=== PATIENT | female | born 1935 | race Caucasian/White ===

== ENCOUNTER 2016-11-19 23:17 | Inpatient (IN) | payer MEDICARE, OTHER ==
--- NOTE | ~2016-11-19 | DS ---
Unit #: [id number] #: [id number] Patient: DURGA COKER [id number] [address] [place], [place] [address] [id number] I MR#: [id number] NAME: DURGA COKER ROOM: 321 Age: 81 Sex: F Admission Date: 11/20/2016 : 1935 Discharge Date: Attending Physician: Tamara Jackson M.D. DISCHARGE SUMMARY REASON FOR ADMISSION Confusion and fall. HISTORY OF PRESENT ILLNESS/HOSPITAL COURSE The patient is a 81-year-old female with underlying history of hypertension, GERD, chronic kidney disease, who was admitted secondary to confusion. Please see H and P for complete details. Initial urinalysis was positive, and therefore initial diagnosis of possible UTI as an etiology for confusion was made. She underwent routine laboratory studies as well as radiological imaging. BMP on the day of admission showed a creatinine of 1.1 and GFR of 50. Initial cardiac enzymes sets were negative. However, repeat troponin was elevated, peak level was 0.29. This subsequently prompted cardiac consultation. Dr. Austin saw and evaluated the patient. She underwent a nuclear stress test imaging yesterday, which did not reveal any acute ischemia. She was cleared from a cardiac standpoint. Routine blood cultures through hospital admission did not yield any bacterial growth. CT chest without contrast was also performed. Consideration of possible pneumonia as an etiology for mental status change. There was opacity of the left lung base, most likely atelectasis, infiltrate was not identified. CT head without contrast was negative. MRI brain was performed without contrast, which did reveal chronic ischemic changes, but no acute process. Final urine culture result did not reveal any acute bacterial growth. [facility] had seen and evaluated the patient. She was felt to be stable from their standpoint to be discharged home. It seems likely that one of the causes of her acute confusion may be secondary to polypharmacy, and therefore baclofen dosage was decreased from 10 mg b.i.d. to 5 mg p.o. b.i.d. p.r.n., and her Ativan was decreased from 0.5 mg p.o. q.8 to only bedtime as needed. Her cardiac medications have been adjusted. Please see below for complete details. Also, it was noted her trazodone was discontinued altogether. FINAL DISCHARGE DIAGNOSES Unit #: [id number] #: [id number] Patient: DURGA COKER 1. Temporary encephalopathy likely secondary to polypharmacy. 2. Elevated troponin/nvd-AV-rkcdqtung myocardial infarction with cardiac stress test/nuclear imaging negative. 3. Anxiety/depression. 4. Acute confusion on top of likely baseline dementia. 5. Anxiety/depression. 6. History of hypertension. 7. Hyperlipidemia. 8. Atelectasis, seen on CT chest. FINAL DISCHARGE MEDICATIONS Zoloft 200 mg p.o. q.h.s., Ativan 0.5 mg p.o. q.h.s. p.r.n., Norvasc 5 mg p.o. daily, Lopressor 25 mg p.o. b.i.d., Lipitor 40 mg p.o. q.h.s., aspirin 81 mg p.o. daily, Plavix 75 mg p.o. daily, baclofen 5 mg p.o. b.i.d. p.r.n., Imdur 30 mg p.o. daily. DISCHARGE CONDITION Stable. DISCHARGE DISPOSITION Home. The patient resides at home with her 2 daughters. The [facility] is to follow at the time of discharge. Dictated by... Zuleyma Rojas/mayra TD: 11/23/2016 06:30 JOB #: [id number] DISCHARGE SUMMARY Page 1 of 1 X Tamara Jackson MD X DISCHARGE SUMMARY
--- NOTE | ~2016-11-19 | CT52 ---
[facility] A Service of [facility] RADIOLOGY TEXT RESULTS PATIENT: DURGA COKER LOCATION: C3A PC 321-01 : 37 UNIT #: [id number] AGE: [address]: Tamara Jackson MD SEX: F ORDER DR: [id number] [place] [id number] [facility]. [place], [place] [address] [id number] I MR#: [id number] Acc #: [id number] NAME: DURGA COKER : 1935 SEX: F STUDY DATE/TIME: 11/19/2016 23:36 UNIT: CEDOF ROOM: 17258 STUDY DESCRIPTION: CT Cervical Spine Wo Cont Attending Physician: Tamara Jackson M.D. Ordering Physician: Robe Solitario M.D. Primary Care Physician: No Primary Care Physician MEDICAL IMAGING REPORT This report is preliminary unless electronic signature is present EXAM CT cervical spine, 11/19/2016. HISTORY 81-year-old female in the ED complaining of neck pain and mental status changes after a fall earlier this morning. TECHNIQUE Thin-section axial CT images were obtained from the skull base through the mid portion of T2. Sagittal and coronal images were reconstructed. This CT exam was performed with one or more of the following radiation dose reduction techniques: automatic exposure control, adjustment of mA and/or kV according to patient size, and iterative reconstruction. FINDINGS No fracture or other acute osseous abnormality is demonstrated. Advanced degenerative disc space changes at C5-6 and more mild degenerative disc space narrowing throughout the remainder of the cervical spine. Severe bilateral degenerative facet arthropathy throughout the cervical spine with slight anterolisthesis at C7-T1, which should be degenerative. There are also advanced degenerative changes at the atlantoaxial articulation. IMPRESSION 1. No fracture or other acute osseous abnormality. 2. Multilevel degenerative disc disease throughout the cervical spine, greatest at C5-6. 3. Severe bilateral degenerative facet arthropathy throughout the cervical spine with slight anterolisthesis at C7-T1. [address]. [facility] A Service of [facility] RADIOLOGY TEXT RESULTS PATIENT: DURGA COKER LOCATION: C3A PC 321-01 : 37 UNIT #: [id number] AGE: [address]: Tamara Jackson MD SEX: F ORDER DR: Dictated by... Jose M Donahue M.D. THIS IS AN ELECTRONICALLY VERIFIED REPORT Jose M Donahue M.D. at 11/20/2016 10:05 PM STEPHEN/leelee TD: 11/20/2016 12:55 JOB #: [id number] MEDICAL IMAGING REPORT Page 1 of 1 COPY
--- NOTE | ~2016-11-19 | EKG ---
PATIENT: DURGA COKER UNIT #: [id number] Ventricular Rate: 86 BPM Atrial Rate: 86 BPM P-R Interval: 204 ms QRS Duration: 102 ms Q-T Interval: 362 ms QTC Calculation(Bezet): 433 ms P [place]: 30 degrees Calculated R [place]: -38 degrees Calculated T [place]: -16 degrees Diagnosis Line: Normal sinus rhythm Diagnosis Line: Left axis deviation Diagnosis Line: Incomplete right bundle branch block Diagnosis Line: Left ventricular hypertrophy Baseline wander Diagnosis Line: Septal infarct , age undetermined Diagnosis Line: Abnormal ECG Diagnosis Line: Diagnosis Line: Confirmed by NEEL LANDEROS MD ([id number]) on 11/21/2016 Diagnosis Line: 9:17:44 AM INTERPRETING MD: TIGRE GOLDBERG
--- NOTE | ~2016-11-19 | EKG ---
PATIENT: DURGA COKER UNIT #: [id number] Ventricular Rate: 70 BPM Atrial Rate: 70 BPM P-R Interval: 152 ms QRS Duration: 108 ms Q-T Interval: 408 ms QTC Calculation(Bezet): 440 ms P [place]: 65 degrees Calculated R [place]: -34 degrees Calculated T [place]: -31 degrees Diagnosis Line: Normal sinus rhythm Diagnosis Line: Left axis deviation Diagnosis Line: Abnormal ECG Diagnosis Line: When compared with ECG of 19-NOV-2016 22:57, Diagnosis Line: (unconfirmed) Diagnosis Line: Incomplete right bundle branch block is no longer Diagnosis Line: Present Diagnosis Line: Diagnosis Line: Confirmed by ROCHELLE TILLMAN MD ([id number]) on 11/22/2016 Diagnosis Line: 7:43:25 AM INTERPRETING MD: PRIMO GOLDBERG
--- NOTE | ~2016-11-19 | CT57 ---
[facility] A Service of [facility] RADIOLOGY TEXT RESULTS PATIENT: DURGA COKER LOCATION: [facility] 321- : 37 UNIT #: [id number] AGE: [address]: Tamara Jackson MD SEX: F ORDER DR: [id number] [facility] [address] [facility]. [place], [place] [address] [id number] I MR#: [id number] Acc #: [id number] NAME: DURGA COKER : 1935 SEX: F STUDY DATE/TIME: 11/20/2016 14:40 UNIT: [address] ROOM: [facility] STUDY DESCRIPTION: CT Chest Wo Cont Attending Physician: Tamara Jackson M.D. Ordering Physician: Tamara Jackson M.D. Primary Care Physician: Primary Care Physician No MEDICAL IMAGING REPORT This report is preliminary unless electronic signature is present EXAM CT chest without contrast INDICATIONS Abnormal chest x-ray. Shortness of air for the past [address] of the chest. This CT exam was performed with one or more of the following radiation dose reduction techniques: automatic exposure control, adjustment of mA and/or kV according to patient size, and iterative reconstruction. COMPARISON 11/19/2016 FINDINGS There is some predominately linear opacity in the left lung base. In the left costophrenic sulcus, there is more rounded opacity measuring up to 3.2 cm. Otherwise there is no dense consolidation. No pleural fluid or pneumothorax. Cardiomegaly. No acute findings in the included upper abdomen. No aggressive appearing bone lesion. IMPRESSION 1. Opacity in the left lung base has the appearance most in keeping with atelectasis. 2. Otherwise lungs are predominately clear. 3. Cardiomegaly. Dictated by... Nuno Charles M.D. THIS IS AN ELECTRONICALLY VERIFIED REPORT Nuno Charles M.D. at 11/22/2016 7:15 AM [facility] A Service of [facility] RADIOLOGY TEXT RESULTS PATIENT: DURGA COKER LOCATION: C3A 321-01 : 37 UNIT #: [id number] AGE: [address]: Tamara Jackson MD SEX: F ORDER DR: DE/terese TD: 11/20/2016 20:11 JOB #: [id number] MEDICAL IMAGING REPORT Page 1 of 1 COPY
--- NOTE | ~2016-11-19 | EKG ---
PATIENT: DUGRA COKER UNIT #: [id number] Ventricular Rate: 69 BPM Atrial Rate: 69 BPM P-R Interval: 158 ms QRS Duration: 96 ms Q-T Interval: 434 ms QTC Calculation(Bezet): 465 ms P [place]: -21 degrees Calculated R [place]: -10 degrees Calculated T [place]: -30 degrees Diagnosis Line: Normal sinus rhythm Diagnosis Line: Nonspecific T wave abnormality Diagnosis Line: Borderline ECG Diagnosis Line: When compared with ECG of 21-NOV-2016 07:14, Diagnosis Line: No significant change was found Diagnosis Line: Confirmed by ROCHELLE TILLMAN MD ([id number]) on 11/24/2016 Diagnosis Line: 7:21:30 AM INTERPRETING MD: PRIMO GOLDBERG
--- NOTE | ~2016-11-19 | MR18 ---
[facility] A Service of [facility] RADIOLOGY TEXT RESULTS PATIENT: DURGA COKER LOCATION: [facility] 321- : 37 UNIT #: [id number] AGE: [address]: Tamara Jackson MD SEX: F ORDER DR: [id number] [facility] [address] [place], [place] [address] [id number] I MR#: [id number] Acc #: [id number] NAME: DURGA COKER : 1935 SEX: F STUDY DATE/TIME: 11/21/2016 11:33 UNIT: [address] ROOM: [facility] STUDY DESCRIPTION: MR Brain Wo Contrast Attending Physician: Tamara Jackson M.D. Ordering Physician: Zenia Nolen M.D. Primary Care Physician: No Primary Care Physician MRI CENTER REPORT This report is preliminary unless electronic signature is present. EXAM Brain MRI HISTORY Patient fell on 11/19/2016. Confusion and disorientation, and difficulty concentrating since. TECHNIQUE Multiplanar imaging of the brain was performed with short and long TR. FINDINGS On diffusion weighted images there is no evidence of abnormal restricted diffusion to suggest a recent infarct. The routine brain images show atrophy with mild to moderate chronic ischemic changes around the ventricles. There is no evidence of mass lesion, hemorrhage or edema. No midline shift is seen. Extraaxial structures are unremarkable. IMPRESSION Atrophy with mild to moderate chronic ischemic changes around the ventricles. No acute findings. Dictated by... Delmer Emmanuel M.D. THIS IS AN ELECTRONICALLY VERIFIED REPORT Delmer Emmanuel M.D. at 11/22/2016 7:41 AM DINAH/laurie TD: 11/21/2016 16:02 JOB #: [id number] MRI CENTER REPORT Page 1 of 1 COPY
--- NOTE | ~2016-11-19 | CO ---
Unit #: [id number] #: [id number] Patient: DURGA COKER [id number] [address] [place], [place] [address] [id number] I MR#: [id number] NAME: DURGA COKER ROOM: 321 Age: 81 Sex: F Admission Date: 11/20/2016 : 1935 Attending Physician: Tamara Jackson M.D. Primary Care Physician: Primary Care Physician No CONSULTATION REPORT REASON FOR CONSULTATION Elevated troponin. HISTORY OF PRESENT ILLNESS This is a 81-year-old white female, who was brought into the emergency room because of confusion and post fall. The patient is a poor historian, but states she slipped and fell off the bed on her blanket. She came to the emergency room at [facility] for evaluation of left shoulder pain. She was sent home on Lortab. Apparently, she had another episode where she fell and was brought into the emergency room again for evaluation. She was hypertensive on admission, where blood pressure was 179/113 mmHg. Her troponin was initially negative, however, this morning it was elevated at 0.44. EKG showed no acute ischemic changes. The patient gives a history of hypertension and family history of coronary artery disease as risk factors for ischemic heart disease. She has had apparently PCI a number years ago, however, there are no details available. There is no family at bedside to confirm. She denies chest pain, but complains of left scapular pain. She has shortness of breath on exertion and dizziness upon standing. She has no history of syncope or near syncope. Has occasional palpitations. PAST MEDICAL HISTORY 1. Questionable PCI in the past, no details available. 2. Hypertension. 3. GERD. 4. Anxiety/depression. 5. Lifelong nonsmoker. 6. Chronic kidney disease. PAST SURGICAL HISTORY 1. Cholecystectomy. 2. Bilateral cataract extractions. 3. [place] tooth extraction. SOCIAL HISTORY The patient lives with 2 daughters who care for her. She ambulates with a cane, but occasionally uses a wheelchair when out. She has never smoked. No illicit drug or alcohol use. FAMILY HISTORY Father from myocardial infarction. Has a sister, who had congestive heart failure. Unit #: [id number] #: [id number] Patient: COWGELL,DURGA ALLERGIES Penicillin. HOME MEDICATIONS Trazodone 100 mg q.h.s., lorazepam 0.5 mg t.i.d., baclofen 10 mg b.i.d. p.r.n., lovastatin 40 mg q.h.s., Zoloft 200 mg q.h.s., Tessalon Perles 100 mg t.i.d., and azithromycin 250 mg daily. REVIEW OF SYSTEMS CONSTITUTIONAL: Negative for weakness and fatigue. Reports no weight gain or weight loss. HEENT: No headache, hearing or vision changes, difficulty with swallowing. Positive for dizziness upon standing. CARDIOVASCULAR: Has no symptoms of angina. Has occasional palpitations. Denies paroxysmal nocturnal dyspnea or orthopnea. No syncope or near syncope. RESPIRATORY: Reports exertional dyspnea and occasional nonproductive cough. GASTROINTESTINAL: No abdominal pain, nausea, or vomiting. No constipation or melena. EXTREMITIES: Negative for lower extremity edema. Reports left scapular pain. PHYSICAL EXAMINATION VITAL SIGNS: Blood pressure 158/66, heart rate 72, temperature 98.3. BMI 26. GENERAL: This is a 81-year-old elderly white female, who is in no acute distress. NEUROLOGIC: She is awake, alert, and oriented without focal weaknesses. NECK: Trachea is midline. No thyromegaly or lymphadenopathy. No jugular venous distention. HEART: S1, S2. Heart sounds are normal. No murmurs. No rubs or clicks. Regular rate and rhythm. LUNGS: Clear to auscultation without rales, rhonchi, or wheezes. ABDOMEN: Soft and nontender with bowel sounds are present. EXTREMITIES: Without leg edema. SKIN: Warm and dry. DIAGNOSTIC STUDIES LABORATORY RESULTS: Glucose 104, BUN 20, creatinine 1.1, sodium 134, potassium 3.6. CK total 336, MB 3.6, MB index 1.1, troponin less than 0.05 to 0.44. IMAGING STUDIES: CT of the head, negative. Chest x-ray shows minimal left basilar infiltrate. CARDIOVASCULAR STUDIES: EKG; normal sinus rhythm with a rate of 86 beats per minute with left axis deviation, poor R-wave progression, and questionable old septal infarct. Incomplete right bundle-branch block. IMPRESSION 1. Altered mental status, status post fall. 2. Questionable left lower lobe pneumonia. 3. Elevated troponin questionable non-ST elevation myocardial infarction. 4. History of coronary artery disease with angina pectoris. 5. Hypertension. 6. Early dementia. Unit #: [id number] #: [id number] Patient: DURGA COKER PLAN 1. Cardiology was consulted for elevated troponin. CT of the head is negative. We will start anticoagulation with aspirin and Lovenox. 2. Lipid profile will be obtained. 3. Start on nitrates and beta-berna. 4. Repeat troponin and EKG. 5. 2D echocardiogram to evaluate left ventricular systolic function. 6. Her troponin continues to trend up where she may require cardiac catheterization to evaluate her coronary anatomy. This needs to be discussed with the patient's family. Dictated by... Osbaldo Chamorro A.P.R.N. for Zuleyma Hassan TD: 11/20/2016 23:46 JOB #: [id number] CONSULTATION REPORT Page 1 of 1 X Osbaldo Chamorro APRN X CONSULTATION REPORT
--- NOTE | ~2016-11-19 | ST ---
Unit #: [id number] #: [id number] Patient: DURGA COKER [id number] [facility]. [address] [place], [place] [address] [id number] I MR#: [id number] NAME: DURGA COKER : 1935 SEX: F STUDY DATE/TIME: 11/21/2016 UNIT: C3A PCU ROOM: [facility] STUDY DESCRIPTION: Attending Physician: Tamara Jackson M.D. Primary Care Physician: No Primary Care Physician CARDIOLOGY REPORT REASON FOR TEST History of CAD and chest pain. FINDINGS Baseline EKG: Sinus rhythm, 67 beats per minute. LVH, incomplete right bundle branch block. Q waves in septal leads cannot rule out previous septal infarct. Nonspecific ST-T wave abnormality is noted. PROCEDURE Next, 0.4 mg of Lexiscan was injected per protocol followed by Cardiolite. During the infusion, the patient denied any complaints of shortness of breath or chest pain; however, she did complain of some mild nausea. This resolved in the recovery period. There was no worsening of baseline ST-T wave changes that were present at rest. There was a rare PVC during the infusion. The test was stopped secondary to protocol completion. IMPRESSION 1. Nondiagnostic EKG portion of Lexiscan Cardiolite. 2. No worsening of ST segments during the infusion suggestive of ischemia. 3. Denied shortness of breath or chest pain. The patient did complain of some mild nausea during the infusion which resolved in the recovery period. 4. There was some isolate rare PVC during the infusion. 5. Please correlate with nuclear imaging. Dictated by... Eladia Ibarra A.P.R.N. for Yoly Austin M.D. LMW/kiera TD: 11/21/2016 11:52 JOB #: [id number] Unit #: [id number] #: [id number] Patient: DURGA COKER CARDIOLOGY REPORT Page 1 of 1 X Eladia Ibarra APRN CARDIOLOGY REPORT
--- NOTE | ~2016-11-19 | TH ---
Unit #: [id number] #: [id number] Patient: DURGA COKER [id number] [address] [address] [id number] I MR#: [id number] NAME: DURGA COKER : 1935 SEX: F STUDY DATE/TIME: 11/21/2016 UNIT: C3A PCU ROOM: [facility] STUDY DESCRIPTION: Lexiscan stress test - Nuclear Attending Physician: Tamara Jackson M.D. Primary Care Physician: No Primary Care Physician CARDIOLOGY REPORT PROCEDURE PERFORMED Lexiscan Cardiolite stress test - Nuclear portion. PROCEDURE Using technetium 99m-labeled Cardiolite, rest and stress SPECT images were obtained. Multiple SPECT images were obtained in various views, including horizontal and vertical long axis and short axis views of the left ventricle. Images were obtained by gated SPECT method. The patient was administered 10.89 mCi of Cardiolite at rest. The patient was administered 30.6 mCi of Cardiolite after Lexiscan infusion was completed. On the stress images, there is a small area of mildly decreased tracer uptake activity inferoapically. The rest images show a bigger area of decreased tracer uptake activity inferoapically. Comparing the rest and stress images, there is a small area of predominantly fixed defect seen inferoapically, worse on the rest images, consistent with soft tissue artifact. The left ventricular ejection fraction is calculated to be 75%. There is no focal wall motion abnormality seen. CONCLUSION 1. No obvious stress-induced ischemia noted. 2. There is a small area of predominantly fixed defect seen inferoapically, most likely due to soft tissue artifact. 3. The left ventricular ejection fraction is calculated to be 75%. 4. There is no focal wall motion abnormality seen. 5. The left ventricular size is small. 6. Normal Lexiscan Cardiolite stress test. Technically limited study. Clinical correlation is requested. Dictated by... Zuleyma Kruger TD: 11/21/2016 12:53 JOB #: [id number] Unit #: [id number] #: [id number] Patient: DURGA COKER CARDIOLOGY REPORT Page 1 of 1 X Yoly Austin MD <ELECTRONICALLY SIGNED> 03/22/17 [facility] CARDIOLOGY REPORT
--- NOTE | ~2016-11-19 | CT71 ---
[facility] A Service of [facility] RADIOLOGY TEXT RESULTS PATIENT: DURGA COKER LOCATION: [facility] 321-01 : 37 UNIT #: [id number] AGE: [address]: Tamara Jackson MD SEX: F ORDER DR: [id number] [facility] [address] [facility]. [place], [place] [address] [id number] I MR#: [id number] Acc #: [id number] NAME: DURGA COKER : 1935 SEX: F STUDY DATE/TIME: 11/19/2016 23:26 UNIT: CEDOF ROOM: 37178 STUDY DESCRIPTION: CT Head Wo Contrast Attending Physician: Tamara Jackson M.D. Ordering Physician: Robe Solitario M.D. Primary Care Physician: Primary Care Physician No MEDICAL IMAGING REPORT This report is preliminary unless electronic signature is present EXAM CT head, noncontrast, 11/19/2016 HISTORY 81-year-old female in the ED after injury earlier today. She fell, now complaining of confusion, disorientation, weakness and difficulty concentrating. Neck pain. TECHNIQUE CT examination of the head without IV contrast. FINDINGS no acute intracranial abnormality. No evidence of hemorrhage, mass, mass effect, cerebral edema or hydrocephalus. No visible skull fracture. IMPRESSION Negative head CT examination.. Dictated by... Jose M Donahue M.D. THIS IS AN ELECTRONICALLY VERIFIED REPORT Jose M Donahue M.D. at 11/20/2016 10:05 PM STEPHEN/lilia TD: 11/20/2016 12:55 JOB #: [id number] MEDICAL IMAGING REPORT Page 1 of 1 COPY
--- NOTE | ~2016-11-19 | DS ---
Unit #: [id number] #: [id number] Patient: DURGA COKER [id number] [address] [address] [id number] I MR#: [id number] NAME: DURGA COKER ROOM: 321 Age: 81 Sex: F Admission Date: 11/20/2016 : 1935 Discharge Date: 11/23/2016 Attending Physician: Tamara Jackson M.D. DISCHARGE SUMMARY ADDENDUM Please note above discharge summary. When we were planning for discharge for the patient to go home in review of her home situation, daughter stated that the patient had difficulty with ambulation. Daughters were unable to care for her. Therefore, PT and OT were asked to evaluate and re-evaluate the patient. She is quite ataxic and has difficulty with movement and therefore, both services as well as in consideration of family situation at home, now elected for the patient. We placed an appropriate rehab facility once rehab bed is available. The patient will be transitioned to rehab for ongoing care. Dictated by... Zuleyma Rojas/mayra TD: 11/23/2016 21:18 JOB #: [id number] DISCHARGE SUMMARY Page 1 of 1 X Tamara Jackson MD X DISCHARGE SUMMARY
--- NOTE | ~2016-11-19 | CR72 ---
[facility] A Service of [facility] & [facility] RADIOLOGY TEXT RESULTS PATIENT: DURGA COKER LOCATION: A 321-01 : 37 UNIT #: [id number] AGE: [address]: Tamara Jackson MD SEX: F ORDER DR: [id number] [facility] [address]. [place], [place] [address] [id number] MR#: [id number] Acc #: [id number] NAME: DURGA COKER : 1935 SEX: F STUDY DATE/TIME: 11/19/2016 22:53 UNIT: CEDOF ROOM: 17107 STUDY DESCRIPTION: CR Chest Single View Portable Attending Physician: Tamara Jackson M.D. Ordering Physician: Ed Doctor [id number] [facility] Primary Care Physician: Primary Care Physician No MEDICAL IMAGING REPORT This report is preliminary unless electronic signature is present EXAM Chest x-ray, 11/19/2016 (2253 hours) HISTORY 81-year-old female in the ED complaining of left side pain, weakness and mental status changes. Fell earlier today. She was previously evaluated in the ED earlier this morning complaining of left side chest pain, back and shoulder pain. TECHNIQUE AP portable upright chest x-ray. FINDINGS Fluid or pleural thickening in the left costophrenic angle with mild left basilar atelectasis. Elevation right hemidiaphragm. Lungs otherwise clear. No pneumothorax or pulmonary airspace consolidation. Cardiomediastinal silhouette is normal. There has been no change since the earlier exam today. Benign calcified granulomas left midlung and left hilum. IMPRESSION 1. No change since earlier today. 2. Fluid or pleural thickening in the left costophrenic angle with mild left basilar atelectasis. Dictated by... Jose M Donahue M.D. THIS IS AN ELECTRONICALLY VERIFIED REPORT Jose M Donahue M.D. at 11/20/2016 10:05 PM Roxana TD: 11/20/2016 12:54 [facility] A Service of [facility] & [facility] RADIOLOGY TEXT RESULTS PATIENT: DURGA COKER LOCATION: [facility] 321-01 : 37 UNIT #: [id number] AGE: [address]: Tamara Jackson MD SEX: F ORDER DR: JOB #: [id number] MEDICAL IMAGING REPORT Page 1 of 1 COPY
--- NOTE | ~2016-11-19 | HP ---
Unit #: [id number] #: [id number] Patient: DURGA COKER [id number] [address] [place], [place] [address] [id number] I MR#: [id number] NAME: DURGA COKER ROOM: 61368 Age: 81 Sex: F Admission Date: 11/20/2016 : 1935 Attending Physician: Zenia Nolen M.D. Primary Care Physician: No Primary Care Physician HISTORY AND PHYSICAL CHIEF COMPLAINT Confusion, fall. HISTORY This pleasant 81-year-old female with hypertension, GERD, chronic kidney disease is admitted for confusion. Daughter provides most of the history as patient is still a bit confused and is quite hard of hearing. Apparently the patient was in her usual state of health until yesterday morning. She was found on the floor by her bedside complaining of left shoulder pain. EMS took the patient to [facility] emergency department where she did have a pyuria on a noncatheterized urine specimen. She was also noted to have a little atelectasis versus infiltrate in the left lower base. She was given Zithromax and one Lortab. She went home yesterday. She is somnolent after taking the Lortab and slept for many hours. Her daughter checked on her several times. She then found her mother sitting on the floor, staring, confused. She was brought to this emergency department late last evening with a blood pressure of 182/90, heart rate 90. She is confused, although improved from before. She, however, is not back to her baseline. Repeat urinalysis in this ER was negative with a straight cath. Chest x-ray really just shows atelectasis at the lower lung base. Patient apparently did have a low grade temperature of 99.2. Workup thus far is fairly unrevealing in terms of the patient's confusion. PAST MEDICAL HISTORY 1. Hypertension. 2. Anxiety and depression. 3. GERD. 4. Diet controlled AODM. 5. Cataract extraction. 6. Laparoscopic cholecystectomy. 7. Oral surgery. ALLERGIES Penicillin and codeine. HOME MEDICATIONS Low does Zestoretic but apparently this was causing some kidney issues and was discontinued by Dr. Gonzalez. Trazodone 100 mg q.h.s; Ativan 0.5 mg t.i.d.; baclofen 10 mg b.i.d. p.r.n.; Mevacor 40 mg q.h.s.; Zoloft 200 mg q.h.s.; Tessalon Perles; Zithromax, which was started yesterday. FAMILY HISTORY Unit #: [id number] #: [id number] Patient: DURGA COKER CAD, CVA. SOCIAL HISTORY The patient lives with family. She is a lifelong nonsmoker and does not drink alcohol. REVIEW OF SYSTEMS Impossible to obtain as patient is hard of hearing and is still a bit confused. PHYSICAL EXAMINATION GENERAL: Pleasant mildly confused 81-year-old female currently in no acute distress. VITAL SIGNS: Temperature 98.8, pulse 90, respirations 20, blood pressure 182/90, O2 saturation 95% on room air. HEENT: Eyes - PERRLA. Extraocular muscles are intact. Status post cataract extraction. Pharynx is benign with poor dentition. I am able to view the tonsils. This patient has a gag reflex. NECK: Her neck is a bit stiff due to pain. CHEST: Clear. CARDIAC: Normal S1 and S2 without murmur. ABDOMEN: Bowel sounds are present. No hepatosplenomegaly, tenderness, or masses. EXTREMITIES: Without clubbing, cyanosis or edema. Pedal pulses are present. NEUROLOGIC: Patient is awake and alert. She is oriented to person and place but not to year. Her cranial nerves are intact. She has equal strength throughout, although is a little bit weak in the left leg as compared to the right leg. DIAGNOSTIC STUDIES ADMISSION LABS: Hematocrit 35.4, normal white count and platelet count. Coags normal. SMA 12 - glucose 111, GFR is 42, potassium 3.2, chloride 99, albumin 3.4. Urinalysis - with catheterization 5-10 red cells, 2-5 white cells, no bacteria. IMAGING STUDIES: Chest x-ray - left lower lobe atelectasis, scarring versus small pleural effusion. 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 Head CT - no acute disease. Chest x-ray - left costophrenic angle atelectasis versus small pleural effusion. CARDIOLOGY STUDIES: EKG - sinus rhythm, rate 86, left anterior fascicular block. Q's noted in V1 and V2. ASSESSMENT 1. Confusion since yesterday with fall. 2. Accelerated hypertension. 3. Atelectasis left lower lobe, started on Zithromax. 4. Chronic kidney disease. 5. Anxiety and depression. 6. Complaints of upper back pain. CT scan of the C-spine shows DJD. 7. Hypokalemia. Unit #: [id number] #: [id number] Patient: DURGA COKER PLANS 1. Norvasc. 2. Check MRI of the brain. 3. Hold sedating medicines. 4. SCDs for DVT prophylaxis. 5. Replace potassium, check magnesium, check cardiac enzymes. 6. Blood cultures. Dictated by Zenia Nolen M.D. AML/ts TD: 11/20/2016 06:39 JOB #: [id number] CC: 2u HISTORY AND PHYSICAL Page 1 of 1 X Zenia Nolen MD X HISTORY AND PHYSICAL
[~2016-11-19 23:17] MED LIST: ALTOPREV40 MG PO; ATIVAN0.5 MG PO; BACLOFEN10 MG PO; DESYREL100 MG PO; DOXYCYCLINE HY100 M3 PO; FENOFIBRATE160 MG PO; HYDROCODONE/APA1 T16 PO; LISINOPRIL-HCTZ1 T19 PO; MOBIC PO; ONDANSETRON HCL4 M1 PO; SERTRALINE HCL100 M1 PO
[2016-11-19 23:55] LABS: BASOPHIL% 0.3 % (0-2.5); EOSINOPHIL# 0.1 X10e3 (0-0.7); EOSINOPHIL% 0.8 % (0.0-7.0); HEMATOCRIT 35.4 % (35.0-45.0); HEMOGLOBIN 11.3 gm/dL (12.0-16.0); LYMPHOCYTE# 1.3 X10e3 (1.0-3.5); LYMPHOCYTE% 14.2 % (17.0-45.0); MEAN CELL VOLUME 84.2 FL (83-96); MEAN CORPUSCULAR HEMOGLOBIN 26.8 PG (28-34); MEAN CORPUSCULAR HGB CONC 31.9 g/dL (30-36); MEAN PLATELET VOLUME 8.2 FL (6.5-11.5); MONOCYTE# 1.1 X10e3 (0-1.0); MONOCYTE% 12.1 % (3.0-12.0); NEUTROPHIL# 6.7 X10e3 (1.5-7.1); NEUTROPHIL% 72.6 % (40-75); PLATELET COUNT 251 X10e3 (140-420); RED BLOOD COUNT 4.21 X10e (3.90-5.30); RED CELL DISTRIBUTION WIDTH 15.2 % (11.0-15.5); WHITE BLOOD COUNT 9.2 X10e3 (4.0-10.5)
[2016-11-19 23:56] LABS: DIFF IND NO
[2016-11-20 00:07] LABS: INR 1.1; PARTIAL THROMBOPLASTIN TIME 32.3 SECONDS (23.5-31.3); PROTHROMBIN TIME (PATIENT) 11.2 SECONDS (9.6-11.5)
[2016-11-20 00:18] LABS: ALBUMIN SERUM 3.4 g/dL (3.5-5.0); BILIRUBIN, DIRECT 0.1 mg/dL (0.0-0.2); BILIRUBIN,INDIRECT 0.6 mg/dL (0.0-0.9); BILIRUBIN,TOTAL 0.7 mg/dL (0.2-2.0); BUN/CREATININE RATIO 16.15; CALCIUM SERUM 8.8 mg/dL (8.4-10.2); CREATININE SERUM 1.3 mg/dL (0.6-1.4); POTASSIUM 3.2 mmol/L (3.5-5.1); PROTEIN TOTAL SERUM 8.2 g/dL (6.0-8.3)
[2016-11-20 01:07] LABS: URINE SOURCE CLEAN CATCH
[2016-11-20 01:11] LABS: URINE APPEARANCE CLEAR; URINE BILIRUBIN NEG (NEG); URINE BLOOD 3+ (NEG); URINE COLOR YELLOW; URINE GLUCOSE NEG (NEG); URINE KETONE NEG (NEG); URINE LEUKOCYTE ESTERASE TRACE (NEG); URINE NITRATE NEG (NEG); URINE PH 5.5 (5-8); URINE PROTEIN 1+ (NEG); URINE SPECIFIC GRAVITY 1.018 (1.003-1.035)
[2016-11-20 01:14] LABS: URINE BACTERIA AUWI NEG (NEGATIVE); URINE SQUAMOUS EPITHELIAL CELL NONE SEEN /[HPF]
[2016-11-20 01:15] LABS: CULTURE INDICATED? NO
[2016-11-20] MEDS ORDERED: BENZONATATE PO (02:58)
[2016-11-20] MEDS ORDERED: AZITHROMYCIN250 MG PO (03:00)
[2016-11-20 05:01] LABS: BASOPHIL# 0.1 X10e3 (0-0.3); BASOPHIL% 0.7 % (0-2.5); EOSINOPHIL# 0.1 X10e3 (0-0.7); EOSINOPHIL% 1.2 % (0.0-7.0); HEMATOCRIT 34.4 % (35.0-45.0); LYMPHOCYTE# 1.7 X10e3 (1.0-3.5); LYMPHOCYTE% 19.9 % (17.0-45.0); MEAN CELL VOLUME 83.8 FL (83-96); MEAN CORPUSCULAR HEMOGLOBIN 26.9 PG (28-34); MEAN CORPUSCULAR HGB CONC 32.1 g/dL (30-36); MEAN PLATELET VOLUME 8.2 FL (6.5-11.5); MONOCYTE# 0.9 X10e3 (0-1.0); MONOCYTE% 10.7 % (3.0-12.0); NEUTROPHIL# 5.8 X10e3 (1.5-7.1); NEUTROPHIL% 67.5 % (40-75); PLATELET COUNT 249 X10e3 (140-420); RED BLOOD COUNT 4.11 X10e (3.90-5.30); RED CELL DISTRIBUTION WIDTH 15.4 % (11.0-15.5); WHITE BLOOD COUNT 8.6 X10e3 (4.0-10.5)
[2016-11-20 05:04] LABS: DIFF IND NO
[2016-11-20 06:08] LABS: BUN/CREATININE RATIO 18.18; CALCIUM SERUM 8.9 mg/dL (8.4-10.2); CREATININE SERUM 1.1 mg/dL (0.6-1.4); GLOM FILT RATE Estimated 50.9 mL/min (>60); MAGNESIUM 1.7 mg/dL (1.6-3.0); POTASSIUM 3.6 mmol/L (3.5-5.1)
[2016-11-20 06:37] LABS: %MB 1.1 % (0.0-4.0); MB 3.6 ng/ml
[2016-11-21 08:55] LABS: HEMATOCRIT 31.4 % (35.0-45.0); HEMOGLOBIN 10.2 gm/dL (12.0-16.0); MEAN CELL VOLUME 83.5 FL (83-96); MEAN CORPUSCULAR HGB CONC 32.3 g/dL (30-36); MEAN PLATELET VOLUME 8.4 FL (6.5-11.5); RED BLOOD COUNT 3.77 X10e (3.90-5.30); RED CELL DISTRIBUTION WIDTH 15.2 % (11.0-15.5); WHITE BLOOD COUNT 6.9 X10e3 (4.0-10.5)
[2016-11-21 09:47] LABS: CALCIUM SERUM 8.6 mg/dL (8.4-10.2); CREATININE SERUM 1.2 mg/dL (0.6-1.4); POTASSIUM 4.1 mmol/L (3.5-5.1)
[2016-11-21 10:07] LABS: %MB 1.1 % (0.0-4.0); MB 2.1 ng/ml
[2016-11-22 04:56] LABS: HEMATOCRIT 31.6 % (35.0-45.0); HEMOGLOBIN 10.1 gm/dL (12.0-16.0); MEAN CELL VOLUME 83.6 FL (83-96); MEAN CORPUSCULAR HEMOGLOBIN 26.6 PG (28-34); MEAN CORPUSCULAR HGB CONC 31.9 g/dL (30-36); MEAN PLATELET VOLUME 8.1 FL (6.5-11.5); RED BLOOD COUNT 3.79 X10e (3.90-5.30); RED CELL DISTRIBUTION WIDTH 15.1 % (11.0-15.5); WHITE BLOOD COUNT 6.7 X10e3 (4.0-10.5)
[2016-11-22 05:53] LABS: BUN/CREATININE RATIO 15.45; CALCIUM SERUM 8.5 mg/dL (8.4-10.2); CREATININE SERUM 1.1 mg/dL (0.6-1.4); GLOM FILT RATE Estimated 47.7 mL/min (>60); MAGNESIUM 1.7 mg/dL (1.6-3.0); POTASSIUM 4.3 mmol/L (3.5-5.1)
== END 2016-11-23 13:58 | disposition home health service (06) | DRG 92 ==
LOC: CED 23:17 → CEDOF 11-20 03:40 → C3A PCU 11-20 16:53
PROVIDERS: Emergency Medicine; Family Medicine; Internal Medicine
DX: G92 Toxic encephalopathy (principal); J98.11 Atelectasis; F03.90 Unspecified dementia, unspecified severity, without behavioral disturbance, psychotic disturbance, mood disturbance, and anxiety; N39.0 Urinary tract infection, site not specified; G31.84 Mild cognitive impairment of uncertain or unknown etiology; K21.9 Gastro-esophageal reflux disease without esophagitis; I12.9 Hypertensive chronic kidney disease with stage 1 through stage 4 chronic kidney disease, or unspecified chronic kidney disease; N18.9 Chronic kidney disease, unspecified; F41.9 Anxiety disorder, unspecified; F32.9 Major depressive disorder, single episode, unspecified; E78.5 Hyperlipidemia, unspecified; R74.9 Abnormal serum enzyme level, unspecified; Z98.49 Cataract extraction status, unspecified eye; Z90.49 Acquired absence of other specified parts of digestive tract; Z88.0 Allergy status to penicillin; E11.9 Type 2 diabetes mellitus without complications; E87.6 Hypokalemia; I25.119 Atherosclerotic heart disease of native coronary artery with unspecified angina pectoris
CPT/HCPCS: 36415; 51701; 70450; 70551; 71010; 71020; 71250; 72125; 78452; 80048; 80053; 80061; 80076; 81003; 82550; 82553; 82947; 83036; 83735; 84484; 85025; 85027; 85610; 85730; 87040; 87086; 93005; 93017; 93306; 94010; 97116; 97162; 97166; 97535; 99283; 99285; A9500; G8978-GP; G8979-GP; G8987-GO; G8988-GO; J0456; J1650; J2785